=== PATIENT | female | born 1985 | race Two or more races ===

== ENCOUNTER → 2016-11-01 | Outpatient (CLI) | payer OTHER ==
--- NOTE | ~2016-11-01 | US77 ---
[facility] A Service of [facility] & [facility] RADIOLOGY TEXT RESULTS PATIENT: SHARON BAI LOCATION: [facility] : [birth year] UNIT #: [id number] AGE: [address]: Edwar Berman MD SEX: F ORDER DR: [id number] [facility] [address] [place], [place] [address] [id number] O MR#: [id number] Acc #: [id number] NAME: SHARON BAI : 1985 SEX: F STUDY DATE/TIME: 11/01/2016 12:40 UNIT: [facility] ROOM: STUDY DESCRIPTION: US Kidney Bilateral Complete Attending Physician: Edwar Berman M.D. Referring Physician: Edwar Berman M.D. Ordering Physician: Edwar Berman M.D. Primary Care Physician: Elmo Sanderson MEDICAL IMAGING REPORT This report is preliminary unless electronic signature is present EXAM Bilateral renal ultrasound 11/01/2016 HISTORY Bilateral flank pain for 1 year and hematuria. FINDINGS The right kidney measures 11.2 cm while the left kidney measures approximately 10 cm in longitudinal dimensions. There is no evidence of hydronephrosis or nephrolithiasis. No cystic or solid mass lesions were seen on either kidney. There is normal renal cortical echogenicity. Images of the bladder are normal. IMPRESSION 1. Negative renal ultrasound. 2. Images of the bladder are normal. Dictated by... Donnie Strong M.D. THIS IS AN ELECTRONICALLY VERIFIED REPORT Donnie Strong M.D. at 11/02/2016 8:07 AM [place] TD: 11/01/2016 14:18 JOB #: [id number] MEDICAL IMAGING REPORT Page 1 of 1 COPY
== END | disposition home or self-care (01) ==
LOC: CGUS 12:13
DX: R31.29 Other microscopic hematuria (principal)
CPT/HCPCS: 76770

== ENCOUNTER → 2017-01-10 | Outpatient (CLI) | payer OTHER ==
--- NOTE | ~2017-01-10 | CR58 ---
[facility] A Service of [facility] & [facility] RADIOLOGY TEXT RESULTS PATIENT: SHARON BAI LOCATION: [facility] : 87 UNIT #: [id number] AGE: [address]: Isela Garcia SEX: F ORDER DR: [id number] [facility] [address] [place], [place] [address] [id number] O MR#: [id number] Acc #: [id number] NAME: SHARON BAI : 1985 SEX: F STUDY DATE/TIME: 01/10/2017 12:46 UNIT: [facility] ROOM: STUDY DESCRIPTION: CR Cervical Spine 2 or 3 Views Attending Physician: Isela Schroeder A.P.R.N. Referring Physician: Isela Schroeder A.P.R.N. Ordering Physician: Isela Schroeder A.P.R.N. Primary Care Physician: Isela Schroeder A.P.R.N. MEDICAL IMAGING REPORT This report is preliminary unless electronic signature is present EXAM Cervical spine, 01/10/2017, [facility]. HISTORY 31-year-old woman posterior neck pain radiating into the left lateral ribs following fall at home 2 years ago. COMPARISON None. FINDINGS AP, lateral, and open mouth odontoid views demonstrate normal cervical alignment and curvature. Vertebral body heights and disc spaces are preserved. Posterior elements are intact. The odontoid is intact. There is no prevertebral soft tissue swelling. Incidental note is made of tiny bilateral cervical ribs. IMPRESSION Negative cervical spine. Incidental note of bilateral tiny cervical ribs. Dictated by... Galdino Wade M.D. THIS IS AN ELECTRONICALLY VERIFIED REPORT Galdino Wade M.D. at 01/11/2017 8:09 AM [place] TD: 01/10/2017 16:27 JOB #: [id number] [facility] A Service of [facility] & [facility] RADIOLOGY TEXT RESULTS [facility]: [id number] [birth year] UNIT #: [id number] AGE: [address]: Isela Garcia SEX: F ORDER DR: MEDICAL IMAGING REPORT Page 1 of 1 COPY
== END | disposition home or self-care (01) ==
LOC: CRAD 12:28
DX: M54.2 Cervicalgia (principal)
CPT/HCPCS: 72040